=== PATIENT | female | born 1935 | race Caucasian/White ===

== ENCOUNTER 2022-10-19 19:57 | Inpatient (IN) | payer MEDICARE, OTHER ==
[~2022-10-19] VITALS: Ht 177.8 cm; Wt 66.8 kg
--- NOTE | 2022-10-19 20:11 | NUR ---
Dr. Ramos at bedside. MSE in progress.
[2022-10-19] MEDS ORDERED: DABI150C PO (20:12)
[2022-10-19] MEDS ORDERED: DORZ10DR10 EACHEYE (20:12)
[2022-10-19] MEDS ORDERED: IV NORMAL SALINE 500 ML BAG IV ONE (20:15)
[2022-10-19 20:33] LABS: HEMATOCRIT 42.1 % (31.2-41.9); MEAN CORPUSCULAR HEMOGLOBIN 30.1 uug (24.7-32.8); MEAN CORPUSCULAR VOLUME 90.2 fL (75.5-95.3); PLATELET COUNT (AUTO) 282 K/uL (179-408)
[2022-10-19 20:56] LABS: ALANINE AMINOTRANSFERASE 29 U/L (14-59); ALKALINE PHOSPHATASE 118 U/L (50-136); ASPARTATE AMINOTRANSFERASE 16 U/L (15-37); BILIRUBIN,DIRECT 0.1 mg/dL (0.0-0.2); BILIRUBIN,TOTAL 0.2 mg/dL (0.2-1.0); CARBON DIOXIDE 27 mmol/L (21-32); CHLORIDE 105 mmol/L (98-107); GLUCOSE 100 mg/dL (74-106); POTASSIUM 4.1 mmol/L (3.5-5.1); TOTAL PROTEIN, SERUM 6.9 g/dL (6.4-8.2); UREA NITROGEN, BLOOD 16 mg/dL (7-18)
--- NOTE | 2022-10-19 22:24 | NUR ---
Dr. Ramos on panel call with Dr. Pedro Pablo Ham.
[2022-10-19] MEDS ORDERED: TEMAZEPAM 15 MG CAPSULE PO PRN (22:30)
[2022-10-19] MEDS ORDERED: ONDANSETRON 4 MG/2 ML VIAL IV PRN (22:30)
[2022-10-19] MEDS ORDERED: MAGNESIUM HYDROXIDE 30 ML LIQUID UDC PO PRN (22:30)
[2022-10-19] MEDS ORDERED: HYDROCODONE/APAP 5-325MG TABLET PO PRN (22:30)
[2022-10-19] MEDS ORDERED: ACETAMINOPHEN 325 MG TABLET PO PRN (22:30)
--- NOTE | 2022-10-19 23:22 | NUR ---
Report given to DEBBI Blackwood.
--- NOTE | 2022-10-20 | NUR ---
RECEIVED PATIENT VIA GURNEY FROM ER. PATIENT IS A/O X4. DENIES ANY PAIN OR DISCOMFORT. NO RESP. DISTRESS NOTED. VSS UPON ADMISSION. PLACED ON TELE SB 50'S. HEPLOCK INTACT AND PATENT, NOTED TO LEFT HAND #22. ORIENTED PATIENT TO ROOM AND CALL LIGHT. CALL LIGHT IN REACH. ALL NEEDS ATTENDED. WILL CONTINUE TO MONITOR AND ASSESS.
--- NOTE | 2022-10-20 | NUR ---
Pt. admitted to Tele 317 , under care of Dr. Chamorro Belongs List completed DEBBI Blackwood aware of patient's arrival to unit.
[2022-10-20 00:21] VITALS: BP 127/70
[2022-10-20 05:19] VITALS: BP 133/65
[2022-10-20 06:13] LABS: HEMATOCRIT 40.5 % (31.2-41.9); MEAN CORPUSCULAR HEMOGLOBIN 30.3 uug (24.7-32.8); MEAN CORPUSCULAR VOLUME 92.1 fL (75.5-95.3); PLATELET COUNT (AUTO) 247 K/uL (179-408)
[2022-10-20] MEDS: PANTOPRAZOLE SODIUM 40 MG TABLET.DR PO SCH (06:23)
[2022-10-20 06:57] LABS: BILIRUBIN,TOTAL 0.4 mg/dL (0.2-1.0); MAGNESIUM 2.1 mg/dL (1.8-2.4); PHOSPHOROUS 4.4 mg/dL (2.5-4.9); POTASSIUM 4.5 mmol/L (3.5-5.1); TOTAL PROTEIN, SERUM 6.1 g/dL (6.4-8.2)
[2022-10-20 08:00] VITALS: BP 135/69
[2022-10-20 08:36] LABS: THYROID STIMULATING HORMONE 4.075 mIU/mL (0.358-3.740)
[2022-10-20] MEDS: DORZOLAMIDE 2% OPHT DROP 10 ML BOTTLE EACHEYE SCH ×2 (09:20→17:22)
[2022-10-20] MEDS: APIXABAN 5 MG TABLET PO SCH ×2 (11:26→22:31)
[2022-10-20 12:09] VITALS: BP 126/52
--- NOTE | 2022-10-20 16:18 | NUR ---
Shift Notes: RECEIVED PATIENT ALERT AND ORIENTED X4 NO SIGNS OF DISTRESS NOTED. PT DENIES PAIN NO SIGNS OF RESPIRATORY DISTRESS MEDICATION GIVEN ORDERED PT RECEIVED VISIT FROM FAMILY MEMBER PT APPEARS HAPPIER. PT IS ON TELE MONITOR NOW IS NSR WILL CONTINUE TO MONITOR FOR SAFETY.
[2022-10-20 16:25] VITALS: BP 161/91
[2022-10-20] MEDS: ATORVASTATIN 10 MG TABLET PO SCH (20:40)
[2022-10-20] MEDS: DOCUSATE SODIUM 100 MG CAPSULE PO SCH (20:40)
[2022-10-20 21:00] VITALS: BP 162/79
[2022-10-20] MEDS ORDERED: MELATONIN 3 MG TABLET PO PRN (22:15)
[2022-10-20] MEDS: LISINOPRIL 20 MG TABLET PO SCH (22:31)
[2022-10-21 05:26] VITALS: BP 124/65
[2022-10-21 06:19] LABS: HEMATOCRIT 39.3 % (31.2-41.9); MEAN CORPUSCULAR HEMOGLOBIN 30.1 uug (24.7-32.8); MEAN CORPUSCULAR VOLUME 90.4 fL (75.5-95.3); PLATELET COUNT (AUTO) 252 K/uL (179-408)
[2022-10-21] MEDS: PANTOPRAZOLE SODIUM 40 MG TABLET.DR PO SCH (06:26)
[2022-10-21 06:42] LABS: CREATININE 0.8 mg/dL (0.6-1.3); PHOSPHOROUS 4.2 mg/dL (2.5-4.9)
[2022-10-21 07:40] LABS: MAGNESIUM 2.1 mg/dL (1.8-2.4)
--- NOTE | 2022-10-21 08:00 | NUR ---
AWAKE ALERT AND ANSWER SIMPLE QUESTIONS APPROPRIATELY. NO SS OF PAIN OR DISTRESS WITH RA SATURATING 97%. SR/SB ON MONITOR
[2022-10-21] MEDS: DORZOLAMIDE 2% OPHT DROP 10 ML BOTTLE EACHEYE SCH ×2 (08:44→16:23)
[2022-10-21] MEDS: LISINOPRIL 20 MG TABLET PO SCH (08:44)
[2022-10-21] MEDS: APIXABAN 5 MG TABLET PO SCH ×2 (08:44→21:02)
[2022-10-21] MEDS: PROTEIN SUPPLEMENT (PROSTAT) 30 ML LIQUID PO SCH ×3 (08:46→16:23)
[2022-10-21 11:51] VITALS: BP 102/56
--- NOTE | 2022-10-21 12:11 | NUR ---
NO ACUTE CHANGE FROM MORNING ASSESSMENT, AWAITING PHYSICAL THERAPY EVAL
[2022-10-21 15:58] LABS: *BILIRUBIN,URIN NEGATIVE (NEGATIVE); *BLOOD, URINE NEGATIVE (NEGATIVE); *CLARITY,URINE CLEAR (CLEAR); *COLOR,URINE YELLOW (YELLOW); *KETONES,URINE NEGATIVE (NEGATIVE); *UROBILINOGEN,URINE 0.2 E.U./dl (NORMAL); LEUKOCYTE ESTERASE ,URINE NEGATIVE (NEGATIVE); NITRITE, URINE NEGATIVE (NEGATIVE); UGLUCOSE NEGATIVE (NEGATIVE)
[2022-10-21 16:01] VITALS: BP 115/64
[2022-10-21] MEDS: ATORVASTATIN 10 MG TABLET PO SCH (20:55)
[2022-10-21] MEDS: DOCUSATE SODIUM 100 MG CAPSULE PO SCH (20:55)
[2022-10-22] VITALS: BP 113/52
[2022-10-22 04:00] VITALS: BP 129/61
[2022-10-22] MEDS: PANTOPRAZOLE SODIUM 40 MG TABLET.DR PO SCH (06:35)
[2022-10-22 07:09] LABS: MEAN CORPUSCULAR VOLUME 90.9 fL (75.5-95.3); PLATELET COUNT (AUTO) 241 K/uL (179-408)
[2022-10-22 07:20] LABS: CARBON DIOXIDE 25 mmol/L (21-32); CHLORIDE 107 mmol/L (98-107); CREATININE 0.8 mg/dL (0.6-1.3); GLUCOSE 81 mg/dL (74-106); MAGNESIUM 2.1 mg/dL (1.8-2.4); PHOSPHOROUS 4.1 mg/dL (2.5-4.9); UREA NITROGEN, BLOOD 15 mg/dL (7-18)
[2022-10-22] MEDS: LISINOPRIL 20 MG TABLET PO SCH (08:52)
[2022-10-22] MEDS: PROTEIN SUPPLEMENT (PROSTAT) 30 ML LIQUID PO SCH ×3 (08:53→17:16)
[2022-10-22] MEDS: APIXABAN 5 MG TABLET PO SCH ×2 (08:54→21:01)
[2022-10-22] MEDS: DORZOLAMIDE 2% OPHT DROP 10 ML BOTTLE EACHEYE SCH ×2 (08:55→17:16)
[2022-10-22 11:55] VITALS: BP 126/57
[2022-10-22] MEDS ORDERED: MELA3TAB41 PO (15:13)
[2022-10-22] MEDS ORDERED: PROT30LI PO (15:13)
[2022-10-22] MEDS ORDERED: LISI20TA30 PO (15:13)
[2022-10-22] MEDS ORDERED: ATOR10TA PO (15:13)
[2022-10-22] MEDS ORDERED: APIX5TAB PO (15:13)
[2022-10-22] MEDS ORDERED: MAGN400O6 PO (15:13)
[2022-10-22] MEDS ORDERED: PANT40TA49 PO (15:13)
[2022-10-22] MEDS ORDERED: ONDA4VIA23 PO (15:13)
[2022-10-22] MEDS ORDERED: HYDR-3972 PO (15:13)
[2022-10-22] MEDS ORDERED: ACET325T53 PO (15:13)
[2022-10-22 16:01] VITALS: BP 122/68
[2022-10-22 20:00] VITALS: BP 115/66
[2022-10-22] MEDS: DOCUSATE SODIUM 100 MG CAPSULE PO SCH (20:59)
[2022-10-22] MEDS: ATORVASTATIN 10 MG TABLET PO SCH (20:59)
[2022-10-23] VITALS: BP 145/77
[2022-10-23 04:00] VITALS: BP 143/61
[2022-10-23] MEDS: PANTOPRAZOLE SODIUM 40 MG TABLET.DR PO SCH (06:45)
--- NOTE | 2022-10-23 07:02 | NUR ---
Slept well the whole night, easy to arouse alert and oriented x3. In no acute distress. Normal sinus rhythm on tele. Rt hand IV intact and patent. Needs assessed and attended to.
--- NOTE | 2022-10-23 08:00 | NUR ---
Received pt. in bed awake, alert and oriented. with IV on left hand g. 20, on cardiac diet. No complain made, observed accordingly. for possible discharge today
[2022-10-23] MEDS: LISINOPRIL 20 MG TABLET PO SCH (09:38)
[2022-10-23] MEDS: DORZOLAMIDE 2% OPHT DROP 10 ML BOTTLE EACHEYE SCH (09:38)
[2022-10-23] MEDS: APIXABAN 5 MG TABLET PO SCH (09:39)
[2022-10-23] MEDS: PROTEIN SUPPLEMENT (PROSTAT) 30 ML LIQUID PO SCH ×2 (09:39→12:11)
[2022-10-23 11:38] VITALS: BP 121/59
--- NOTE | 2022-10-23 13:30 | NUR ---
Patient seen and examined by Dr. Pendleton with orders made and carried out. Pt. for discharge, completed discharge paper.
--- NOTE | 2022-10-23 14:00 | NUR ---
Discharged patient, IV line removed. Provided discharge paper to ambulance. Pt. for transfer to [facility]. Endorsed pt. well to charge nurse Purvi. Pt. stable at the time of discharge.
== END 2022-10-23 14:03 | DRG 77 ==
LOC: ER 19:57 → TELE3 21:50
PROVIDERS: ADMIT Internal Medicine; ATTEND Internal Medicine
DX: I67.4 Hypertensive encephalopathy (principal); G93.41 Metabolic encephalopathy; E44.0 Moderate protein-calorie malnutrition; I16.0 Hypertensive urgency; R53.1 Weakness; H35.30 Unspecified macular degeneration; Z79.02 Long term (current) use of antithrombotics/antiplatelets; I49.5 Sick sinus syndrome; I48.91 Unspecified atrial fibrillation; K21.9 Gastro-esophageal reflux disease without esophagitis; E78.5 Hyperlipidemia, unspecified; H40.9 Unspecified glaucoma; Z96.659 Presence of unspecified artificial knee joint; Z96.649 Presence of unspecified artificial hip joint; Z20.822 Contact with and (suspected) exposure to COVID-19; Z87.891 Personal history of nicotine dependence; Z79.01 Long term (current) use of anticoagulants; I10 Essential (primary) hypertension; M25.50 Pain in unspecified joint
CPT/HCPCS: 36415; 71045; 83735; 84100; 84443; 84484; 85025; 87040; 93005; A4663; A6209; G0378; J7040